=== PATIENT | female | born 1945 ===

== ENCOUNTER 2024-04-29 06:00 | Day surgery (SDC) | payer OTHER ==
[~2024-04-29 06:00] MED LIST: ASA81 MG PO; AVAPRO300 MG PO; SIMVASTATIN40 MG PO
[2024-04-29] MEDS ORDERED: VANCOMYCIN HCL 1,000 MG VIAL IV ONE (10:45)
[2024-04-29] MEDS ORDERED: VANCOMYCIN HCL 1,000 MG VIAL IR ONE (10:45)
[2024-04-29] MEDS ORDERED: MACROBID 100 M100 MG PO (11:51)
[2024-04-29] MEDS ORDERED: TRAM1TAB98 PO (11:51)
== END 2024-04-29 15:30 | disposition home or self-care (01) ==
LOC: CIR.AMB 06:00
PROVIDERS: ATTEND Obstetrics & Gynecology Gynecology
DX: N81.5 Vaginal enterocele (principal); N81.11 Cystocele, midline; N81.6 Rectocele; N81.82 Incompetence or weakening of pubocervical tissue; N81.83 Incompetence or weakening of rectovaginal tissue; B20 Human immunodeficiency virus [HIV] disease; G47.30 Sleep apnea, unspecified; F41.9 Anxiety disorder, unspecified; F41.0 Panic disorder [episodic paroxysmal anxiety]